=== PATIENT | male | born 1990 | race Hispanic/Latino ===

== ENCOUNTER 2016-12-07 01:08 | Emergency (ER) | payer OTHER ==
[2016-12-07] MEDS ORDERED: Sodium Chloride 0.9% 1,000 ML IV STA (01:25)
[2016-12-07] MEDS ORDERED: DiphenhydrAMINE 50 mg/ml Inj IV STA (01:25)
--- NOTE | 2016-12-07 01:39 | ED PDOC ---
HPI: Allergic Reaction Time Seen by Provider: 12/07/16 01:20 Chief Complaint (Nursing): Allergic Reaction Chief Complaint (Provider): Allergic Reaction and ETOH intoxication History Per: Patient History/Exam Limitations: intoxication Onset/Duration Of Symptoms: Mins (Prior to arrival) Current Symptoms Are (Timing): Still Present Possible Cause: Food Additional Complaint(s): Mejia Hernández is a 26 y/o male with a history of Type 1 Insulin- Dependent Diabetes and peanut/tree nut allergies, who presents to the ED complaining of throat tightness, itchiness, and nausea, after erroneously eating a protein bar containing nuts. Admits to ETOH use and history is somewhat unreliable due to inebriated state. Patient has insulin pump in place. PMD: Fidel Card MD Past Medical History Reviewed: Historical Data, Nursing Documentation, Vital Signs Vital Signs: Last Vital Signs Temp 98.3 F 12/07/16 01:16 Pulse 111 H 12/07/16 01:16 Resp 22 12/07/16 01:16 BP 128/61 12/07/16 01:16 Pulse Ox 98 12/07/16 01:16 - Medical History PMH: Diabetes (Insulin pump in place) Other PMH: Peanut allergy - Surgical History Surgical History: No Surg Hx - Family History Family History: States: Unknown Family Hx - Social History Current smoker - smoking cessation education provided: No Alcohol: Social Drugs: Other - Home Medications Home Medications: Ambulatory Orders Medication Instructions Recorded Cetirizine HCl [Zyrtec] 10 mg PO QAM #10 capsule 12/07/16 Epinephrine HCl [Epipen 0.3 mg MR PRN PRN #1 ml 12/07/16 Auto-Injector] Famotidine [Pepcid] 20 mg PO Q12 #14 tab 12/07/16 - Allergies Allergies/Adverse Reactions: Allergies Allergy/AdvReac Type Severity Reaction Status Date / Time Sulfa (Sulfonamide Allergy RASH Verified 09/15/15 19:19 Antibiotics) Review of Systems ROS Statement: Except As Marked, All Systems Reviewed And Found Negative ENT: Positive for: Other (Throat tightness and itchiness) Physical Exam - Reviewed Nursing Documentation Reviewed: Yes Vital Signs Reviewed: Yes - Physical Exam Appears: Positive for: Non-toxic, No Acute Distress Head Exam: Positive for: ATRAUMATIC, NORMAL INSPECTION, NORMOCEPHALIC Skin: Positive for: Normal Color, Warm, Dry Eye Exam: Positive for: Normal appearance ENT: Positive for: Normal ENT Inspection Neck: Positive for: Normal, Painless ROM, Supple Cardiovascular/Chest: Positive for: Regular Rate, Rhythm. Negative for: Murmur Respiratory: Positive for: Normal Breath Sounds. Negative for: Respiratory Distress Back: Positive for: Normal Inspection. Negative for: Vertebral Tenderness Extremity: Positive for: Normal ROM. Negative for: Deformity Neurologic/Psych: Positive for: Alert, Oriented, Other (Slurred speech) - Laboratory Results Result Diagrams: 12/07/16 01:44 12/07/16 01:44 - ECG O2 Sat by Pulse Oximetry: 98 (RA) Pulse Ox Interpretation: Normal - Critical Care Total Time (In Min): 30 Disposition - Clinical Impression Clinical Impression: Allergic reaction, Hypoglycemia, Alcohol intoxication - Patient ED Disposition Is Patient to be Admitted: No Doctor Will See Patient In The: Office Counseled Patient/Family Regarding: Studies Performed, Diagnosis, Need For Followup, Rx Given - Disposition Disposition: Routine/Home Disposition Time: :57 Condition: IMPROVED Prescriptions: Cetirizine HCl [Zyrtec] 10 mg PO QAM #10 capsule Epinephrine HCl [Epipen Auto-Injector] 0.3 mg MR PRN PRN #1 ml PRN Reason: Anaphylaxis Famotidine [Pepcid] 20 mg PO Q12 #14 tab Instructions: Diabetic Hypoglycemia (ED), General Allergic Reaction (ED) Medical Decision Making Medical Decision Making: Time: 01:25 Initial Impression: 26 y/o intoxicated male complaining of allergic reaction after eating nut-containing food Initial Plan: --Labs: urine drug screen, AccuCheck, alcohol serum level, CMP, CBC --Benadryl 50 mg IV --Solu-Medrol 125 mg IV --Zofran 4 mg IV --Pepcid 40 mg IV --NS IV 1000 ml at 1000 mls/hr --Pending reevaluation Time: :57 --Labs reviewed, no clinically significant abnormalities with the exception of alcohol level and low blood sugar. --Patient has markedly improved after two amps of D50. Blood sugars have normalized. --Patient reports no further symptoms related to his allergic reaction. --Provider deferred Rx of Solu-Medrol given patients history of diabetes. Clinical Impression: Alcohol intoxication, Hypoglycemia, Allergic reaction Upon provider reevaluation patient is feeling better, medically stable, and requires no further treatment in the ED at this time. Patient will be discharged with Rx for Epipen, Zyrtec, and Pepcid. Counseling was provided and all questions were answered regarding diagnosis and need for follow up with PMD in 1-2 days. There is agreement to discharge plan. Return if symptoms persist or worsen. Scribe Attestation: Documented by Cele Brown, acting as a scribe for Nj De Dios MD Provider Scribe Attestation: All medical record entries made by the Scribe were at my direction and personally dictated by me. I have reviewed the chart and agree that the record accurately reflects my personal performance of the history, physical exam, medical decision making, and the department course for this patient. I have also personally directed, reviewed, and agree with the discharge instructions and disposition.
[2016-12-07] MEDS ORDERED: Dextrose 50% SYRINGE Inj (50 ml) ONE (01:44)
[2016-12-07] MEDS ORDERED: Dextrose 50% SYRINGE Inj (50 ml) IVP ONE ×2 (01:45)
[2016-12-07 01:47] LABS: BASO # 0.1 K/uL (0.0-0.2); BASO % 0.7 % (0.0-2.0); EOS # 0.2 K/uL (0.0-0.7); EOS % 2.4 % (0.0-4.0); HEMATOCRIT 42.9 % (35.0-51.0); LYMPH # 2.4 K/uL (1.0-4.3); MEAN CORPUSCULAR HGB CONC 34.1 g/dL (33.0-37.0); MEAN PLATELET VOLUME 8.8 fl (7.2-11.7); MONO # 0.6 K/uL (0.0-0.8); MONO % 7.6 % (0.0-10.0); NEUT # 4.7 K/uL (1.8-7.0); NEUT % 59.3 % (50.0-75.0); RED CELL DISTRIBUTION WIDTH 13.7 % (11.5-14.5)
[2016-12-07 01:56] LABS: ALB/GLOB RATIO 1.5 (1.0-2.1); ALCOHOL SERUM 98 mg/dl (0-10); ALKALINE PHOSPHATASE 81 U/L (38-126); ALT/SGPT 46 U/L (21-72); AST/SGOT 45 U/L (17-59); BILIRUBIN,TOTAL 0.4 mg/dl (0.2-1.3); BLOOD UREA NITROGEN 18 mg/dl (9-20); CALCIUM 9.6 mg/dL (8.4-10.2); CARBON DIOXIDE 22 mmol/L (22-30); CHLORIDE 106 mmol/L (98-107); GFR AFRICAN-AMERICAN > 60; POTASSIUM 4.1 MMOL/L (3.6-5.0); SODIUM 141 mmol/l (132-148); TOTAL PROTEIN 7.9 G/DL (6.3-8.2)
[2016-12-07 01:59] LABS: GLUCOSE,RANDOM 33 mg/dL (75-110)
[2016-12-07 03:01] LABS: RBC URINE 2 /hpf (0-3); URINE BILIRUBIN NEGATIVE (NEGATIVE); URINE BLOOD NEGATIVE (NEGATIVE); URINE COLOR YELLOW (YELLOW); URINE GLUCOSE (UA) >=500 mg/dL (Normal); URINE KETONE TRACE mg/dL (NEGATIVE); URINE LEUKOCYTE ESTERASE NEG Leu/uL (Negative); URINE PROTEIN NEGATIVE (NEGATIVE); URINE UROBILINOGEN 0.2-1.0 mg/dL (0.2-1.0)
[2016-12-07 04:04] VITALS: BP 133/66; PULSE 81; RESP 16; TEMP 97.8
[2016-12-07 04:54] VITALS: O2SAT 98
== END 2016-12-07 04:10 | disposition home or self-care (01) ==
LOC: H.ER 01:08
DX: T78.40XA Allergy, unspecified, initial encounter (principal); E10.9 Type 1 diabetes mellitus without complications; F10.129 Alcohol abuse with intoxication, unspecified; Z79.4 Long term (current) use of insulin; Z96.41 Presence of insulin pump (external) (internal)